=== PATIENT | male | born 1960 | race Caucasian/White ===

== ENCOUNTER 2021-09-21 10:41 | Outpatient (CLI) | payer OTHER ==
--- NOTE | 2021-09-21 15:53 | XRAY Report ---
PROCEDURE: Abdomen 1 View X-Ray INDICATIONS: KIDNEY STONE TECHNIQUE: One view of the abdomen acquired. COMPARISON: None FINDINGS: Surgical changes and devices: None. Bowel: Bowel gas pattern is normal. Soft tissues: No suspicious abdominal calcifications. Visualized solid organ contours appear normal in size. Bones: No suspicious bony lesions. Bilateral moderate acetabular joint space narrowing and small ma rginal osteophytes present. IMPRESSION: No evidence of renal calculi. Moderate bilateral hip joint space narrowing Reviewed by: Sohan Randolph MD on 09/21/2021 2:52 PM [facility] Approved by: Sohan Randolph MD on 09/21/2021 2:52 PM [facility] Station ID: [id number]
== END 2021-09-21 10:42 | disposition home or self-care (01) ==
LOC: DI 10:41
PROVIDERS: ATTEND Physician Assistant Medical
DX: N20.0 Calculus of kidney (principal); M16.0 Bilateral primary osteoarthritis of hip

== ENCOUNTER 2023-01-23 12:30 | Outpatient (CLI) | payer OTHER ==
[2023-01-23 18:35] LABS: BASOPHILS # (AUTO) 0.1 10^3/uL (0.0-0.1); BASOPHILS % (AUTO) 0.5 %; EOSINOPHILS % (AUTO) 0.2 %; HCT - HEMATOCRIT 45.2 % (42.0-52.0); HGB - HEMOGLOBIN 14.5 g/dL (14.0-18.0); LYMPHOCYTES # (AUTO) 1.1 10^3/uL (1.5-3.5); LYMPHOCYTES % (AUTO) 8.9 %; MEAN CORPUSCULAR HEMOGLOBIN 29.4 pg (27.0-31.0); MEAN CORPUSCULAR HGB CONC 32.1 g/dL (32.0-36.0); MEAN CORPUSCULAR VOLUME 91.7 fL (80.0-94.0); MEAN PLATELET VOLUME 9.7 fL (7.4-11.4); MONOCYTES # (AUTO) 0.7 10^3/uL (0.0-1.0); MONOCYTES % (AUTO) 5.9 %; NEUTROPHILS # (AUTO) 10.3 10^3/uL (1.5-6.6); NEUTROPHILS % (AUTO) 84.1 %; PLT - PLATELET COUNT 280 10^3/uL (130-450); RED BLOOD COUNT 4.93 10^6/uL (4.70-6.10); RED CELL DISTRIBUTION WIDTH 14.1 % (12.0-15.0); WHITE BLOOD COUNT 12.2 x10^3/uL (4.8-10.8)
[2023-01-23 18:47] LABS: ALBUMIN 4.7 g/dL (3.2-5.5); ALBUMIN/GLOBULIN RATIO 1.6 (1.0-2.2); BILIRUBIN,TOTAL 1.1 mg/dL (0.2-1.0); CALCIUM 10.4 mg/dL (8.5-10.3); CREATININE 1.3 mg/dL (0.6-1.3); CRP - C-REACTIVE PROTEIN 1.8 mg/dL (<0.5); POTASSIUM 4.4 mmol/L (3.5-4.5); TOTAL PROTEIN 7.6 g/dL (6.4-8.9)
== END 2023-01-23 12:45 | disposition home or self-care (01) ==
LOC: LAB.N 12:30
PROVIDERS: ATTEND Registered Nurse
DX: R11.2 Nausea with vomiting, unspecified (principal); K46.9 Unspecified abdominal hernia without obstruction or gangrene; K59.00 Constipation, unspecified; R10.9 Unspecified abdominal pain
CPT/HCPCS: 36415; 80053; 83690; 85025; 86140

== ENCOUNTER 2023-01-24 09:54 | Emergency (ER) | payer OTHER ==
[2023-01-24 10:21] LABS: BASOPHILS # (AUTO) 0.1 10^3/uL (0.0-0.1); BASOPHILS % (AUTO) 0.4 %; EOSINOPHILS # (AUTO) 0.1 10^3/uL (0.0-0.7); EOSINOPHILS % (AUTO) 0.6 %; HCT - HEMATOCRIT 44.7 % (42.0-52.0); HGB - HEMOGLOBIN 14.6 g/dL (14.0-18.0); LYMPHOCYTES # (AUTO) 1.6 10^3/uL (1.5-3.5); LYMPHOCYTES % (AUTO) 12.9 %; MEAN CORPUSCULAR HEMOGLOBIN 29.4 pg (27.0-31.0); MEAN CORPUSCULAR HGB CONC 32.7 g/dL (32.0-36.0); MEAN CORPUSCULAR VOLUME 90.1 fL (80.0-94.0); MEAN PLATELET VOLUME 8.7 fL (7.4-11.4); MONOCYTES # (AUTO) 1.1 10^3/uL (0.0-1.0); MONOCYTES % (AUTO) 8.3 %; NEUTROPHILS # (AUTO) 9.8 10^3/uL (1.5-6.6); NEUTROPHILS % (AUTO) 77.5 %; PLT - PLATELET COUNT 266 10^3/uL (130-450); RED BLOOD COUNT 4.96 10^6/uL (4.70-6.10); WHITE BLOOD COUNT 12.7 x10^3/uL (4.8-10.8)
[2023-01-24 10:42] LABS: ALBUMIN 4.6 g/dL (3.2-5.5); ALBUMIN/GLOBULIN RATIO 1.5 (1.0-2.2); BILIRUBIN,TOTAL 1.5 mg/dL (0.2-1.0); CALCIUM 10.3 mg/dL (8.5-10.3); CREATININE 1.4 mg/dL (0.6-1.3); POTASSIUM 4.4 mmol/L (3.5-4.5); TOTAL PROTEIN 7.6 g/dL (6.4-8.9)
[2023-01-24 10:44] LABS: BILIRUBIN,URINE NEGATIVE (NEGATIVE); GLUCOSE, URINE (UA) >=1000 mg/dL (NEGATIVE); KETONES,URINE (UA) 15 mg/dL (NEGATIVE); LEUKOCYTE ESTERASE, URINE NEGATIVE (NEGATIVE); NITRITE,URINE NEGATIVE (NEGATIVE); OCCULT BLOOD,URINE NEGATIVE (NEGATIVE); PH,URINE 5.5 PH (5.0-7.5); PROTEIN,URINE NEGATIVE (NEGATIVE); UROBILINOGEN,URINE 2 E.U./dL (NORMAL)
[2023-01-24 10:45] LABS: CLARITY,URINE CLEAR (CLEAR)
[2023-01-24] MEDS ORDERED: SODIUM CHLORIDE 0.9% 1,000 ML IV STA (10:58)
[2023-01-24] MEDS ORDERED: MORPHINE 2 MG/ML CARPUJECT IVP STA ×2 (10:58→15:25)
[2023-01-24] MEDS ORDERED: ONDANSETRON 4 MG/2 ML VIAL IVP STA (10:58)
--- NOTE | 2023-01-24 12:14 | ED Physician Documentation ---
PD HPI ABD PAIN - Stated complaint Stated Complaint: ABD PX - Chief complaint Chief Complaint: Abd Pain - History obtained from History obtained from: Patient - Additional information Additional information: Patient is a 62-year-old male presenting for evaluation of lower abdominal pain that feels like a cramping sensation for the past 2 days with associated vomiting. He has not been able to keep any oral intake down. He went to the walk-in clinic yesterday and was given prescriptions for dicyclomine and Zofran. Labs were also ordered as an outpatient and he was directed to the emergency department today when his white count was noted to be elevated. He says the Zofran has helped with the nausea. His last bowel movement was 2 days ago. He has had a prior appendectomy for ruptured appendix. Denies fever, chest pain or difficulty breathing. Does not take a blood thinner. He last had some cereal around 3:00 this morning. Review of Systems Constitutional: denies: Fever Cardiac: denies: Chest pain / pressure Respiratory: denies: Dyspnea GI: reports: Abdominal Pain, Nausea, Vomiting. denies: Bloody / black stool : denies: Dysuria Neurologic: denies: Headache PD PAST MEDICAL HISTORY - Past Medical History Cardiovascular: Hypertension, Murmur Respiratory: Sleep apnea, CPAP use Endocrine/Autoimmune: Type 2 diabetes GI: GERD : Kidney stones Psych: Depression, Claustrophobia Musculoskeletal: Chronic back pain - Past Surgical History Past Surgical History: Yes - Present Medications Home Medications: Ambulatory Orders Medication Instructions Recorded Confirmed Amitriptyline [Elavil] 150 mg PO HS 01/26/13 01/24/23 lisinopriL [Zestril] 20 mg PO DAILY 01/26/13 01/24/23 Insulin Glargine,Hum.rec.anlog 98 unit SUBQ BID 05/21/14 01/24/23 [Lantus] Empagliflozin [Jardiance] 25 mg PO DAILY 01/24/23 01/24/23 Levothyroxine [Synthroid] 112 mcg PO QDAC 01/24/23 01/24/23 Metoprolol Succinate 100 mg PO DAILY 01/24/23 01/24/23 Omeprazole Magnesium 20 mg PO DAILY 01/24/23 01/24/23 Pioglitazone HCl [Actos] 30 mg PO DAILY 01/24/23 01/24/23 Rosuvastatin Calcium [Crestor] 10 mg PO DAILY 01/24/23 01/24/23 Semaglutide [Ozempic] 1 mg SQ PRN PRN 01/24/23 01/24/23 - Allergies Allergies/Adverse Reactions: Allergies Allergy/AdvReac Type Severity Reaction Status Date / Time diphenhydramine AdvReac Hallucinati Verified 01/24/23 10:06 [From Benadryl] ons dulaglutide [From Trulicity] AdvReac Anxiety Verified 01/24/23 10:06 - Social History Does the pt smoke?: No Smoking Status: Never smoker Does the pt drink ETOH?: No Does the pt have substance abuse?: No - Immunizations Immunizations are current?: Yes Immunizations: TDAP current <10years - POLST Patient has POLST: No PD ED PE NORMAL - General General: Alert and oriented X 3, No acute distress, Well developed/nourished - HEENT HEENT: Atraumatic - Neck Neck: Supple, no meningeal sign - Cardiac Cardiac: RRR, No murmur - Respiratory Respiratory: No respiratory distress, Clear bilaterally - Abdomen Abdomen: Soft, Other (Hypoactive bowel sounds, ventral wall hernia Right of the umbilicus with tenderness and lower abdominal tenderness; Abdomen appears distended) - Derm Derm: Warm and dry - Neuro Neuro: Normal speech Results - Vitals Vitals: Vital Signs - 24 hr 01/24/23 01/24/23 01/24/23 10:00 10:55 13:10 Temperature 36.1 C L Heart Rate 91 87 89 Respiratory 14 16 15 Rate Blood Pressure 108/60 117/68 122/66 O2 Saturation 95 94 96 Oxygen O2 Source Room air - Labs Labs: Laboratory Tests 01/24/23 01/24/23 01/24/23 10:17 10:17 10:35 WBC 12.7 H RBC 4.96 Hgb 14.6 Hct 44.7 MCV 90.1 MCH 29.4 MCHC 32.7 RDW 14.0 Plt Count 266 MPV 8.7 Neut # (Auto) 9.8 H Lymph # (Auto) 1.6 Price # (Auto) 1.1 H Eos # (Auto) 0.1 Baso # (Auto) 0.1 Absolute Nucleated RBC 0.00 Nucleated RBC % 0.0 Sodium 134 L Potassium 4.4 Chloride 96 L Carbon Dioxide 29 Anion Gap 9.0 BUN 31 H Creatinine 1.4 H Estimated GFR (MDRD) 51 L Glucose 119 H Calcium 10.3 Total Bilirubin 1.5 H AST 25 ALT 17 Alkaline Phosphatase 95 Total Protein 7.6 Albumin 4.6 Globulin 3.0 Albumin/Globulin Ratio 1.5 Lipase 34 Urine Color YELLOW Urine Clarity CLEAR Urine pH 5.5 Ur Specific [place] 1.025 Urine Protein NEGATIVE Urine Glucose (UA) >=1000 H Urine Ketones 15 H Urine Occult Blood NEGATIVE Urine Nitrite NEGATIVE Urine Bilirubin NEGATIVE Urine Urobilinogen 2 H Ur Leukocyte Esterase NEGATIVE Ur Microscopic Review NOT INDICATED Urine Culture Comments NOT INDICATED PD Medical Decision Making - ED course Complexity details: reviewed results, re-evaluated patient, d/w patient ED course: Patient is a 62-year-old male presenting for evaluation of lower abdominal pain with associated nausea and vomiting that is been present for 2 days. CBC, chemistries and urine analysis were obtained. Mildly elevated white count. Patient does have a ventral wall hernia that I am unable to reduce and his abdomen is distended. Patient was given IV morphine, IV fluids and IV Zofran. His pain did improve but I was still unable to reduce the hernia. CT scan was obtained which shows concerns for a partial small bowel obstruction related to the ventral wall hernia. I reviewed this with on-call surgery, Dr. Mott who will evaluate the patient. Patient will be signed out at shift change pending general surgery evaluation. 1400 - D/W Dr. Mott regarding Exam findings of nonreducible hernia and CT with partial small bowel obstruction. He is going into the OR with a case right now but will see the patient in 2 hours. Does not think patient needs an NG tube at this time as he is not actively vomiting. Departure - Departure Clinical Impression: Incarcerated ventral hernia Condition: Stable Forms: PCP List
--- NOTE | 2023-01-24 13:51 | CT Report ---
PROCEDURE: ABDOMEN/PELVIS W INDICATIONS: lower abd pain CONTRAST: 100ml omni 300 TECHNIQUE: After the administration of IV contrast, 5 mm thick sections acquired from the diaphragms to the symp hysis. 5 mm thick coronal and sagittal reformats were acquired. For radiation dose reduction, the f ollowing was used: automated exposure control, adjustment of mA and/or kV according to patient size. COMPARISON: CT abdomen pelvis 5-15 FINDINGS: Image quality: Excellent. Lung bases and heart: Unremarkable. Liver: No solid mass. Hepatic steatosis. Liver is enlarged measuring 19.5 cm. Gallbladder and biliary tree: Dependent stone is present without wall thickening. Spleen: No splenomegaly. Pancreas: No pancreatic ductal dilation. Adrenals: No adrenal nodule. Kidneys and ureters: No hydronephrosis. No renal cystic lesion which requires follow up. No solid mas s. Bowel and peritoneum: There are mildly dilated fluid-filled loops of small bowel with greatest AP dim ension measuring 3.3 cm. Ventral bowel containing hernia is present. While there are nondistended loo ps of colon within the hernia, hernia also contains small bowel, as well as terminal ileum. There is proximal small bowel dilation.. No pathologic free fluid. Mild hiatal hernia. Lymph nodes: No central or retroperitoneal adenopathy. Vessels: No infrarenal aortic aneurysm. PELVIS Reproductive organs: Unremarkable. Bladder: No abnormal wall thickening, accounting for underdistension. Pelvic lymph nodes: No pelvic adenopathy by size criteria. Bones: No aggressive osseous abnormality. Other: No significant ventral or inguinal hernia. IMPRESSION: Partial small bowel obstruction with origin suspected to be secondary to ventral hernia. Reviewed by: Ana Fontenot MD on 01/24/2023 1:50 PM PDT Approved by: Ana Fontenot MD on 01/24/2023 1:50 PM PDT Station ID: [id number]
[2023-01-24] MEDS ORDERED: iohexoL-300 100 ML VIAL IVP ONE (15:03)
[2023-01-24] MEDS ORDERED: PROPOFOL 200 MG/20 ML VIAL IVP ONE (16:37)
[2023-01-24] MEDS ORDERED: MIDAZOLAM 2 MG/2 ML VIAL ONE (16:37)
--- NOTE | 2023-01-24 17:05 | ED Physician Documentation ---
ED Addendum - Addendum Addendum: 01/24/23 17:02 Patient was signed out to me by Dr. Hummel, please see her note for full H&P. Dr. Mott came and saw the patient, he was able to reduce the hernia in the emergency department. Recommends clear liquid diet tonight. Recommends follow- up with surgery as an outpatient. Will likely need a facility with higher surgical capabilities than here. Patient counseled regarding signs and symptoms for which I believe and urgent re-evaluation would be necessary. Patient with good understanding of and agreement to plan and is comfortable going home at this time This document was made in part using voice recognition software. While efforts are made to proofread this document, sound alike and grammatical errors may occur. Departure - Departure Disposition: 01 Home, Self Care Clinical Impression: Incarcerated ventral hernia Condition: Stable Instructions: ED Hernia Inguinal Follow-Up: SOWMYA ROJO ARNP [Primary Care Provider] - Within 1 week Comments: Please follow-up with your doctor for further care. Your hernia was reduced tonight by Dr. Mott. He recommends that you wear the abdominal binder and you follow a clear liquid diet tonight. He also recommends that you be referred to somewhere such as the [facility] for discussion of repair of your hernia. Forms: PCP List
--- NOTE | 2023-01-24 17:10 | ANESTHESIA ---
Pre-Anesthesia VS, & Labs - Diagnosis Incarcerated ventral hernia - Procedure ventral hernia reduction (external) Vital Signs: Temp Pulse Resp BP Pulse Ox O2 Flow Rate 36.1 C L 90 16 117/75 99 01/24/23 10:00 01/24/23 15:22 01/24/23 15:22 01/24/23 15:22 01/24/23 15:22 Height: 5 ft 8 in Weight (kg): 111.13 kg Body Mass Index: 37.2 BMI Classification: Obese - NPO >8 hours - Lab Results Current Lab Results: Laboratory Tests 01/24/23 10:17: Sodium 134 L, Potassium 4.4, Chloride 96 L, Carbon Dioxide 29, Anion Gap 9.0, BUN 31 H, Creatinine 1.4 H, Estimated GFR (MDRD) 51 L, Glucose 119 H, Calcium 10.3, Total Bilirubin 1.5 H, AST 25, ALT 17, Alkaline Phosphatase 95, Total Protein 7.6, Albumin 4.6, Globulin 3.0, Albumin/Globulin Ratio 1.5, Lipase 34 01/24/23 10:17: WBC 12.7 H, RBC 4.96, Hgb 14.6, Hct 44.7, MCV 90.1, MCH 29.4, MCHC 32.7, RDW 14.0, Plt Count 266, MPV 8.7, Neut # (Auto) 9.8 H, Lymph # (Auto) 1.6, [place] # (Auto) 1.1 H, Eos # (Auto) 0.1, Baso # (Auto) 0.1, Absolute Nucleated RBC 0.00, Nucleated RBC % 0.0 Lab results reviewed: Yes Fish Bones: 01/24/23 10:17 01/24/23 10:17 Home Medications and Allergies Home Medications: Ambulatory Orders Empagliflozin [Jardiance] 25 mg PO DAILY 01/24/23 Levothyroxine [Synthroid] 112 mcg PO QDAC 01/24/23 Metoprolol Succinate 100 mg PO DAILY 01/24/23 Omeprazole Magnesium 20 mg PO DAILY 01/24/23 Pioglitazone HCl [Actos] 30 mg PO DAILY 01/24/23 Rosuvastatin Calcium [Crestor] 10 mg PO DAILY 01/24/23 Semaglutide [Ozempic] 1 mg SQ PRN PRN 01/24/23 Amitriptyline [Elavil] 150 mg PO HS 01/26/13 lisinopriL [Zestril] 20 mg PO DAILY 01/26/13 Insulin Glargine,Hum.rec.anlog [Lantus] 98 unit SUBQ BID 05/21/14 Empagliflozin [Jardiance] 25 mg PO DAILY 01/24/23 Levothyroxine [Synthroid] 112 mcg PO QDAC 01/24/23 Metoprolol Succinate 100 mg PO DAILY 01/24/23 Omeprazole Magnesium 20 mg PO DAILY 01/24/23 Pioglitazone HCl [Actos] 30 mg PO DAILY 01/24/23 Rosuvastatin Calcium [Crestor] 10 mg PO DAILY 01/24/23 Semaglutide [Ozempic] 1 mg SQ PRN PRN 01/24/23 Allergies/Adverse Reactions: Allergies Allergy/AdvReac Type Severity Reaction Status Date / Time diphenhydramine AdvReac Hallucinati Verified 01/24/23 10:06 [From Benadryl] ons dulaglutide [From Trulicity] AdvReac Anxiety Verified 01/24/23 10:06 Anes History & Medical History - Anesthetic History Anesthesia Complications: reports: No previous complications, Slow wake-up Family history of Anesthesia Complications: Denies Family history of Malignant Hyperthermia: Denies - Medical History Cardiovascular: reports: Hypertension, Atrial fibrillation ( states remote hx), Murmur Pulmonary: reports: Sleep apnea, CPAP use Gastrointestinal: reports: GERD Urinary: reports: Kidney stones Musculoskeletal: reports: Chronic back pain Endocrine/Autoimmune: reports: Type 2 diabetes Smoking Status: Never smoker History of Cancer?: No Exam General: Alert, Oriented x3, Cooperative Dental: Poor dentition Mouth Openin Fingerbreadth Neck Mobility: Normal Mallampati classification: III Thyromental Distance: 4-6 cm Respiratory: Lungs clear, Normal breath sounds, Decreased breath sounds Cardiovascular: Regular rate (tachy) Neurological: Normal speech Mental/Cognitive Status: Alert/Oriented X3, Normal for patient Cognitive Status: Within normal limits Plan Anesthesia Type: MAC Consent for Procedure(s) Verified and Reviewed: Yes Code Status: Attempt Resuscitation ASA classification: 3-Severe systemic disease Is this case an emergency?: Yes
--- NOTE | 2023-01-24 17:11 | ANESTHESIA POST OP EVALUATION ---
Anesthesia Post Eval - Post Anesthesia Eval Vitals: Last Vital Signs Temp 36.1 C L 01/24/23 10:00 Pulse 90 01/24/23 15:22 Resp 16 01/24/23 15:22 BP 117/75 01/24/23 15:22 Pulse Ox 99 01/24/23 15:22 O2 Flow Rate CV Function Including HR & BP: Stable Pain Control: Satisfactory Nausea & Vomiting: Negative Mental Status: Baseline (drowsy) Respiratory Status: Airway Patent Hydration Status: Satisfactory Anesthesia Complications: None
--- NOTE | 2023-01-24 17:18 | CONSULTATION NOTE ---
Referring Provider Consult Date: 01/24/23 Chief Complaint - Chief Complaint Chief Complaint: n/v x 1 yesterday. no appetite today History of Present Illness - History Obtained From Records Reviewed: yes History obtained from: pt Exam Limitations: none - History of Present Illness HPI Comment/Other: history low midline incision for appendectomy 2014. postop course was complicated by respiratory difficulties needing ICU and transfer to [facility]. He has had an incisional hernia. He saw a surgeon at [place] that recommend weight loss. He states he has lost 18 lbs. 2 days ago he had n/v x 1. no appetite today. ct scan shows the hernia with low grade obstruction. he states he always has a hernia bulge. denies pain. ct scan nearly 12 x 7 cm defect and nearly 10x 10 cm small bowel out. no inflammation History - Past Medical History Cardiovascular: reports: Hypertension, Atrial fibrillation ( states remote hx), Murmur Respiratory: reports: Sleep apnea, CPAP use Endocrine/Autoimmune: reports: Type 2 diabetes GI: reports: GERD : reports: Kidney stones Psych: reports: Depression, Claustrophobia Musculoskeletal: reports: Chronic back pain MRSA Hx?: No - POLST Patient has POLST: No Meds/Allgy - Home Medications Home Medications: Ambulatory Orders Medication Instructions Recorded Confirmed Amitriptyline [Elavil] 150 mg PO HS 01/26/13 01/24/23 lisinopriL [Zestril] 20 mg PO DAILY 01/26/13 01/24/23 Insulin Glargine,Hum.rec.anlog 98 unit SUBQ BID 05/21/14 01/24/23 [Lantus] Empagliflozin [Jardiance] 25 mg PO DAILY 01/24/23 01/24/23 Levothyroxine [Synthroid] 112 mcg PO QDAC 01/24/23 01/24/23 Metoprolol Succinate 100 mg PO DAILY 01/24/23 01/24/23 Omeprazole Magnesium 20 mg PO DAILY 01/24/23 01/24/23 Pioglitazone HCl [Actos] 30 mg PO DAILY 01/24/23 01/24/23 Rosuvastatin Calcium [Crestor] 10 mg PO DAILY 01/24/23 01/24/23 Semaglutide [Ozempic] 1 mg SQ PRN PRN 01/24/23 01/24/23 - Allergies Allergies/Adverse Reactions: Allergies Allergy/AdvReac Type Severity Reaction Status Date / Time diphenhydramine AdvReac Hallucinati Verified 01/24/23 10:06 [From Benadryl] ons dulaglutide [From Trulicity] AdvReac Anxiety Verified 01/24/23 10:06 Review of Systems - Other Findings Other Findings: diabetes, central obesity, sleep apnea. typically gets up at night and sleeps in a recliner 10 pt ros as above otherwise unremarkable Exam - Vital Signs Vital Signs: Vital Signs x48h Temp Pulse Resp BP Pulse Ox 01/24/23 15:22 90 16 117/75 99 01/24/23 13:10 89 15 122/66 96 01/24/23 10:55 87 16 117/68 94 01/24/23 10:00 36.1 C L 91 14 108/60 95 - Physical Exam General Appearance: positive: No acute distress, Alert Eyes Bilateral: positive: PERRL, EOMI, No scleral icterus ENT: positive: No signs of dehydration Neck: positive: No JVD, Trachea midline Respiratory: positive: No respiratory distress Cardiovascular: positive: Regular rate & rhythm Abdomen: positive: Non-tender, No distention, Other (mild tenderness with reducing the hernia) Neurologic/Psychiatric: positive: Oriented x3 Conclusion/Plan - Problem List (1) Incarcerated ventral hernia Conclusion/Plan: large hernia defect with central obesity. 90 hernia reduced without sedation. remaining 10 % reduced with sedation. well tolerated. hernia is completely reduce. abdomen is soft, non tender, benign. binder placed. recommend use of binder all times except for shower. recommend hernia center referral. his health and size of the hernia requires a higher level of care for elective procedures. - Lab Results Lab results reviewed: Yes Fish Bones: 01/24/23 10:17 01/24/23 10:17 - Diagnostic Imaging Results Diagnostic Imaging Results: positive: Read independently
[2023-01-24 17:26] VITALS: BP 110/67; O2SAT 94
--- NOTE | 2023-01-24 17:59 | ED Physician Documentation ---
ED Addendum - Addendum Addendum: 01/24/23 17:58 Patient request pain medication for home, I will prescribe a small amount. Prescription sent to [facility]. Departure - Departure Disposition: Home, Self Care Clinical Impression: Incarcerated ventral hernia Condition: Stable Instructions: ED Hernia Inguinal Follow-Up: SOWMYA ROJO ARNP [Primary Care Provider] - Within 1 week Prescriptions: Oxycodone HCl/Acetaminophen [Percocet 5-325 mg Tablet] 1 - 2 each PO Q6H PRN #10 tablet MDD 6 tabs PRN Reason: pain Comments: Please follow-up with your doctor for further care. Your hernia was reduced tonight by Dr. Mott. He recommends that you wear the abdominal binder and you follow a clear liquid diet tonight. He also recommends that you be referred to somewhere such as the [facility] for discussion of repair of your hernia. Forms: PCP List
== END 2023-01-24 18:06 | disposition home or self-care (01) ==
LOC: ED 09:54
DX: K43.6 Other and unspecified ventral hernia with obstruction, without gangrene (principal); I10 Essential (primary) hypertension; E11.9 Type 2 diabetes mellitus without complications; Z79.4 Long term (current) use of insulin; E66.9 Obesity, unspecified
CPT/HCPCS: 36415; 74177; 80053; 81003; 83690; 85025; 96374; 96375; 96376; 99284; Q9967; 81001; 87086

== ENCOUNTER 2023-01-27 01:55 | Outpatient (CLI) | payer OTHER | END 2023-01-27 23:59 | disposition short-term general hospital (02) | LOC: EMS 01:55 | DX: R11.2 Nausea with vomiting, unspecified (principal) | CPT/HCPCS: A0425; A0427 ==

== ENCOUNTER 2023-04-23 14:30 | Outpatient (CLI) | payer OTHER ==
--- NOTE | 2023-04-24 07:53 | XRAY Report ---
PROCEDURE: Wrist 4 View LT INDICATIONS: LEFT WRIST JOINT PAIN TECHNIQUE: 3 views of the wrist were acquired. COMPARISON: None. FINDINGS: Bones: No fractures or dislocations. No suspicious bony lesions. Mild osteoarthritic changes, most pronounced at the triscaphe joint and at the first carpal metacarpal joint. Soft tissues: No suspicious soft tissue calcifications or masses. IMPRESSION: 1. No acute osseous abnormality. 2. Mild osteoarthritis. Reviewed by: Reji Womack MD on 04/24/2023 7:52 AM [facility] Approved by: Reji Womack MD on 04/24/2023 7:52 AM [facility] Station ID: [id number]
== END 2023-04-23 14:45 | disposition home or self-care (01) ==
LOC: DI.N 14:30
PROVIDERS: ATTEND Specialist
DX: M19.032 Primary osteoarthritis, left wrist (principal)

== ENCOUNTER 2024-02-09 12:16 | Outpatient (CLI) | payer OTHER | END 2024-02-09 23:59 | disposition EMS.NT | LOC: EMS 12:16 | DX: E11.649 Type 2 diabetes mellitus with hypoglycemia without coma (principal); Z79.4 Long term (current) use of insulin ==